=== PATIENT | male | born 1960 | race Caucasian/White ===

== ENCOUNTER 2018-02-28 18:26 | Emergency (ER) | payer OTHER ==
[~2018-02-28] VITALS: Ht 167.6 cm; Wt 77.3 kg
[2018-02-28 19:02] LABS: BASOPHILS % (AUTO) 0.4 % (0.0-2.0); EOSINOPHILS % (AUTO) 1.6 % (1.0-6.0); HEMATOCRIT 43.8 % (41-53); HEMOGLOBIN 14.9 g/dL (13.5-17.5); LYMPHOCYTES # (AUTO) 1.5 K/uL (1.0-4.8); MEAN CORPUSCULAR HEMOGLOBIN 30.9 pg (26.0-34.0); MEAN CORPUSCULAR HGB CONC 33.9 G/dL (31.0-37.0); MEAN CORPUSCULAR VOLUME 91 fL (80-100); MONOCYTES # (AUTO) 0.3 K/uL (0.1-1.0); MONOCYTES % (AUTO) 7.9 % (2.0-9.0); NEUTROPHILS # (AUTO) 2.4 K/uL (1.8-7.7); NEUTROPHILS % (AUTO) 56.1 % (40.0-70.0); PLATELET COUNT (AUTO) 264 K/uL (150-450); RED CELL DISTRIBUTION WIDTH 13.6 % (11.5-14.5)
[2018-02-28 19:18] LABS: CALCIUM, TOTAL 9.5 mg/dL (8.8-10.5); CREATININE 1.42 mg/dL (0.60-1.30); POTASSIUM 4.1 mmol/L (3.5-5.1)
[2018-02-28 19:24] LABS: ALBUMIN 3.8 g/dL (3.4-5.0); BILIRUBIN,TOTAL 0.4 mg/dL (0.1-1.0); TOTAL PROTEIN, SERUM 7.7 g/dL (6.4-8.2)
[2018-02-28] MEDS ORDERED: IOVERSOL 320 MG/ML 100 ML VIAL ONE (20:30)
[2018-02-28] MEDS ORDERED: SODIUM CHLORIDE 0.9% 100 ML ONE (20:31)
[2018-02-28 22:54] VITALS: BP 134/69
== END 2018-02-28 23:22 | disposition home or self-care (01) ==
LOC: EMS 18:27
DX: R07.89 Other chest pain (principal); I25.2 Old myocardial infarction; Z88.6 Allergy status to analgesic agent; Z88.5 Allergy status to narcotic agent; Z88.8 Allergy status to other drugs, medicaments and biological substances
CPT/HCPCS: 36415; 71045; 71260; 80053; 84484; 85025; 93005; 99285; J7050; Q9967

== ENCOUNTER 2022-12-02 20:38 | Emergency (ER) | payer MEDICAID, OTHER ==
[~2022-12-02] VITALS: Ht 170.2 cm; Wt 84.1 kg
[~2022-12-02 20:38] MED LIST: ASPI-1450 PO; ATOR20TA PO; BUPR-50 PO; HYDR50TA46 PO; LOSA-382 PO; MORP-130 PO; OXYC-43 PO
[2022-12-02 20:56] VITALS: BP 144/98; PULSE 90; RESP 14; TEMP 98.6
[2022-12-02] MEDS ORDERED: LIDOCAINE 1% 10 ML VIAL SQ ONE (22:30)
[2022-12-02] MEDS ORDERED: PERTUSS(ACELL),DIPH,TET VAC/PF 0.5 ML SYRINGE IM. ONE (22:30)
[2022-12-02] MEDS ORDERED: BACITRACIN 0.9 GM PACKET OINTMENT TP ONE (22:30)
== END 2022-12-02 23:36 | disposition left against medical advice (07) ==
LOC: EMS 20:41
DX: S61.210A Laceration without foreign body of right index finger without damage to nail, initial encounter (principal); F41.9 Anxiety disorder, unspecified; M19.90 Unspecified osteoarthritis, unspecified site; F32.A Depression, unspecified; E78.00 Pure hypercholesterolemia, unspecified; I10 Essential (primary) hypertension; Z98.890 Other specified postprocedural states; Z88.5 Allergy status to narcotic agent; Z88.8 Allergy status to other drugs, medicaments and biological substances; W26.8XXA Contact with other sharp object(s), not elsewhere classified, initial encounter; Y93.89 Activity, other specified; Y92.89 Other specified places as the place of occurrence of the external cause; Y99.8 Other external cause status
CPT/HCPCS: 99281; Z7502

== ENCOUNTER 2023-08-27 13:32 | Emergency (ER) | payer MEDICARE, OTHER ==
[~2023-08-27] VITALS: Ht 167.6 cm; Wt 63.6 kg
[~2023-08-27 13:32] MED LIST changes: -MORP-130 PO; -OXYC-43 PO
[2023-08-27 13:36] VITALS: TEMP 98
[2023-08-27 14:45] VITALS: BP 156/95; PULSE 87; RESP 16
== END 2023-08-27 16:02 | disposition home or self-care (01) ==
LOC: EMS 13:54
DX: S51.002A Unspecified open wound of left elbow, initial encounter (principal); I10 Essential (primary) hypertension; F41.9 Anxiety disorder, unspecified; M19.90 Unspecified osteoarthritis, unspecified site; F32.A Depression, unspecified; E78.00 Pure hypercholesterolemia, unspecified; Z98.890 Other specified postprocedural states; Z88.5 Allergy status to narcotic agent; Z88.8 Allergy status to other drugs, medicaments and biological substances; X58.XXXA Exposure to other specified factors, initial encounter; Y93.89 Activity, other specified; Y92.89 Other specified places as the place of occurrence of the external cause; Y99.8 Other external cause status
CPT/HCPCS: 99281; Z7502

== ENCOUNTER 2023-09-23 11:50 | Emergency (ER) | payer MEDICARE, OTHER ==
[~2023-09-23] VITALS: Ht 170.2 cm; Wt 75.0 kg
[2023-09-23 11:52] VITALS: BP 157/114; PULSE 102; RESP 16; TEMP 98
[2023-09-23] MEDS ORDERED: abx PO (11:56)
[2023-09-23] MEDS ORDERED: SULF-301 PO (11:56)
[2023-09-23 12:15] LABS: GLUCOMETER DEV NAME(LOC) ERT.5; GLUCOSE,POINT OF CARE 185 MG/DL (70-110)
== END 2023-09-23 13:38 | disposition left against medical advice (07) ==
LOC: EMS 11:51
DX: M79.675 Pain in left toe(s) (principal); Z53.21 Procedure and treatment not carried out due to patient leaving prior to being seen by health care provider
CPT/HCPCS: 82962

== ENCOUNTER → 2023-12-06 | Emergency (ER) | payer MEDICARE, OTHER ==
[~2023-12-06] VITALS: Ht 170.2 cm; Wt 68.2 kg
[~2023-12-06] MED LIST changes: -ASPI-1450 PO; -ATOR20TA PO; -BUPR-50 PO; -HYDR50TA46 PO; -LOSA-382 PO; +SULF-301 PO; +abx PO
[2023-12-06 10:27] VITALS: TEMP 97.4
[2023-12-06 10:35] LABS: COVID AG,FIA SOURCE NASAL SWAB
[2023-12-06 10:41] LABS: GLUCOMETER DEV NAME(LOC) ER.7; GLUCOSE,POINT OF CARE 251 MG/DL (70-110)
[2023-12-06 10:47] LABS: BASOPHILS % (AUTO) 0.1 % (0.0-2.0); EOSINOPHILS % (AUTO) 0.1 % (1.0-6.0); HEMATOCRIT 43.8 % (41-53); HEMOGLOBIN 14.3 g/dL (13.5-17.5); LYMPHOCYTES # (AUTO) 0.5 K/uL (1.0-4.8); LYMPHOCYTES % (AUTO) 3.5 % (22.0-44.0); MEAN CORPUSCULAR HEMOGLOBIN 30.4 pg (26.0-34.0); MEAN CORPUSCULAR HGB CONC 32.7 G/dL (31.0-37.0); MEAN CORPUSCULAR VOLUME 93 fL (80-100); MONOCYTES # (AUTO) 0.5 K/uL (0.1-1.0); MONOCYTES % (AUTO) 3.3 % (2.0-9.0); PLATELET COUNT (AUTO) 356 K/uL (150-450); RED CELL DISTRIBUTION WIDTH 13.6 % (11.5-14.5)
[2023-12-06 10:48] LABS: RBC MORPHOLOGY COMMENT NORMAL RBC MORPH
[2023-12-06 10:58] LABS: CALCIUM, TOTAL 9.5 mg/dL (8.8-10.5); CREATININE 1.23 mg/dL (0.60-1.30); POTASSIUM 5.7 mmol/L (3.5-5.1)
[2023-12-06 10:58] LABS: SARS-COV2 (COVID) ANTIGEN,FIA Negative (Negative)
[2023-12-06 11:00] LABS: INFLUENZA TYPE A NEGATIVE FOR TYPE A (NEGATIVE); INFLUENZA TYPE B NEGATIVE FOR TYPE B (NEGATIVE)
[2023-12-06 11:17] LABS: TROPONIN I-HIGH SENSITIVITY 13 ng/L (<76)
[2023-12-06 13:45] LABS: APPEARANCE,URINE CLEAR (CLEAR); BILIRUBIN,URINE NEGATIVE (NEGATIVE); COLOR,URINE LIGHT YELLOW (YELLOW); GLUCOSE, URINE (UA) >=1000 mg/dL (NEGATIVE); LEUKOCYTE ESTERASE ,URINE NEGATIVE (NEGATIVE); NITRATE,URINE NEGATIVE (NEGATIVE); OCCULT BLOOD,URINE NEGATIVE (NEGATIVE); PROTEIN,URINE NEGATIVE (NEGATIVE); UROBILINOGEN,URINE <=1.0 mg/dL (<=1.0)
[2023-12-06 14:06] LABS: BACTERIA,URINE None Seen /HPF (None Seen); RBC,URINE 0-2 /HPF (0-2); WBC,URINE None Seen /HPF (0-5)
[2023-12-06 14:07] LABS: CALCIUM OXALATE CRYSTALS,UR Moderate /LPF (None Seen)
[2023-12-06 14:31] VITALS: BP 180/77; PULSE 76; RESP 18
== END | disposition still patient (30) ==
LOC: EMS 10:10
DX: B34.9 Viral infection, unspecified (principal); M79.10 Myalgia, unspecified site; R09.89 Other specified symptoms and signs involving the circulatory and respiratory systems; E11.9 Type 2 diabetes mellitus without complications; I10 Essential (primary) hypertension; Z88.5 Allergy status to narcotic agent; Z88.8 Allergy status to other drugs, medicaments and biological substances; Z20.822 Contact with and (suspected) exposure to COVID-19
CPT/HCPCS: 71045; 80048; 81001; 82962; 83880; 84484; 85025; 87804; 93005; 99285; 36415-L1; 36415-TC

== ENCOUNTER 2023-12-25 20:43 | Emergency (ER) | payer OTHER ==
[~2023-12-25] VITALS: Ht 170.2 cm; Wt 67.6 kg
[2023-12-25 20:55] VITALS: BP 182/90; PULSE 86; RESP 18; TEMP 98
[2023-12-25] MEDS ORDERED: METH-661 PO (22:42)
[2023-12-25] MEDS ORDERED: METH4TAB3 PO (22:42)
[2023-12-25] MEDS: DEXAMETHASONE SOD PHOS 4 MG/ML 5 ML VIAL IM ONE (22:49)
[2023-12-25] MEDS: METHOCARBAMOL 500 MG TABLET PO ONE (22:49)
== END 2023-12-25 23:25 | disposition home or self-care (01) ==
LOC: EMS 20:43
DX: M51.16 Intervertebral disc disorders with radiculopathy, lumbar region (principal); G89.29 Other chronic pain; F41.9 Anxiety disorder, unspecified; M19.90 Unspecified osteoarthritis, unspecified site; F32.A Depression, unspecified; E11.9 Type 2 diabetes mellitus without complications; E78.00 Pure hypercholesterolemia, unspecified; I10 Essential (primary) hypertension; Z98.890 Other specified postprocedural states; Z88.5 Allergy status to narcotic agent; Z88.8 Allergy status to other drugs, medicaments and biological substances
CPT/HCPCS: 99283; 96372; J1100

== ENCOUNTER 2024-03-06 16:39 | Emergency (ER) | payer MEDICARE, OTHER ==
[~2024-03-06] VITALS: Ht 170.2 cm; Wt 67.1 kg
[~2024-03-06 16:39] MED LIST changes: +METH-661 PO; +METH4TAB3 PO; -SULF-301 PO; -abx PO
[2024-03-06 21:26] VITALS: BP 129/81; PULSE 90; RESP 16; TEMP 98.7; O2SAT 94
== END 2024-03-06 22:01 | disposition home or self-care (01) ==
LOC: EMS 16:39
DX: E11.9 Type 2 diabetes mellitus without complications (principal); I10 Essential (primary) hypertension; E78.00 Pure hypercholesterolemia, unspecified; I25.2 Old myocardial infarction; Z88.5 Allergy status to narcotic agent
CPT/HCPCS: 82962; 99282; Z7502

== ENCOUNTER 2024-03-16 11:16 | Emergency (ER) | payer MEDICARE, OTHER ==
[~2024-03-16] VITALS: Ht 170.2 cm; Wt 66.8 kg
[2024-03-16 11:28] VITALS: TEMP 97.9
[2024-03-16] MEDS ORDERED: OXYC1TAB6 PO ×3 (11:28→18:10)
[2024-03-16] MEDS ORDERED: OXYC10TA59 PO (11:28)
[2024-03-16] MEDS ORDERED: LOSA-382 PO ×2 (11:28→12:21)
[2024-03-16] MEDS ORDERED: ATOR40TA28 PO ×2 (11:28→12:21)
[2024-03-16] MEDS ORDERED: HYDR25TA84 PO ×2 (11:28→12:21)
[2024-03-16] MEDS ORDERED: BUPR-345 PO (11:28)
[2024-03-16] MEDS ORDERED: SITA100 PO ×2 (11:28→12:21)
[2024-03-16] MEDS ORDERED: ALPR-705 PO ×3 (11:28→18:32)
[2024-03-16] MEDS ORDERED: BUPR-514 PO (12:21)
[2024-03-16 12:34] VITALS: BP 139/88; PULSE 79; RESP 14; O2SAT 98
== END 2024-03-16 12:45 | disposition home or self-care (01) ==
LOC: EMS 11:16
DX: M79.10 Myalgia, unspecified site (principal); Z76.0 Encounter for issue of repeat prescription; E11.9 Type 2 diabetes mellitus without complications; I10 Essential (primary) hypertension; E78.00 Pure hypercholesterolemia, unspecified; F32.A Depression, unspecified; F41.9 Anxiety disorder, unspecified; Z88.5 Allergy status to narcotic agent; Z79.84 Long term (current) use of oral hypoglycemic drugs; Z79.899 Other long term (current) drug therapy
CPT/HCPCS: 99281; Z7502

== ENCOUNTER 2024-04-19 01:56 | Emergency (ER) | payer OTHER ==
[~2024-04-19] VITALS: Ht 170.2 cm; Wt 72.7 kg
[~2024-04-19 01:56] MED LIST changes: +ALPR-705 PO; +ATOR40TA28 PO; +BUPR-345 PO; +BUPR-514 PO; +HYDR25TA84 PO; +LOSA-382 PO; +OXYC10TA59 PO; +OXYC1TAB6 PO; +SITA100 PO
[2024-04-19 02:14] VITALS: BP 179/98; PULSE 104; RESP 20; TEMP 97.8; O2SAT 97
== END 2024-04-19 03:31 | disposition home or self-care (01) ==
LOC: EMS 01:56
DX: H92.01 Otalgia, right ear (principal); F41.9 Anxiety disorder, unspecified; F32.A Depression, unspecified; E11.65 Type 2 diabetes mellitus with hyperglycemia; E78.00 Pure hypercholesterolemia, unspecified; I10 Essential (primary) hypertension; Z79.84 Long term (current) use of oral hypoglycemic drugs; Z85.828 Personal history of other malignant neoplasm of skin; Z88.5 Allergy status to narcotic agent
CPT/HCPCS: 82962; 99282

== ENCOUNTER 2024-06-13 15:01 | Emergency (ER) | payer OTHER ==
[~2024-06-13] VITALS: Ht 165.1 cm; Wt 77.3 kg
[2024-06-13 15:11] VITALS: TEMP 98.2
[2024-06-13] MEDS: LIDOCAINE 5% TRANSDERMAL PATCH TD ONE (18:00)
[2024-06-13] MEDS: HYDROCORTISONE 0.5% 30 GM CREAM TP ONE (18:10)
[2024-06-13] MEDS ORDERED: OXYC5 PO (21:21)
[2024-06-13] MEDS: HYDROmorphone HCL 2 MG/ML SYRINGE IM ONE (21:23)
[2024-06-13 21:37] VITALS: BP 156/90; PULSE 90; RESP 18; O2SAT 97
== END 2024-06-13 21:38 | disposition home or self-care (01) ==
LOC: EMS 15:01
DX: S32.018A Other fracture of first lumbar vertebra, initial encounter for closed fracture (principal); E11.9 Type 2 diabetes mellitus without complications; I10 Essential (primary) hypertension; E78.00 Pure hypercholesterolemia, unspecified; Z88.5 Allergy status to narcotic agent; Z88.6 Allergy status to analgesic agent; V09.9XXA Pedestrian injured in unspecified transport accident, initial encounter; Y93.01 Activity, walking, marching and hiking; Y92.89 Other specified places as the place of occurrence of the external cause; Y99.8 Other external cause status
CPT/HCPCS: 99285; 72131; 82962; 96372; J1171

== ENCOUNTER 2024-06-21 01:21 | Emergency (ER) | payer OTHER ==
[~2024-06-21] VITALS: Ht 170.2 cm; Wt 75.5 kg
[~2024-06-21 01:21] MED LIST changes: -ALPR-705 PO; -ATOR40TA28 PO; -BUPR-345 PO; -BUPR-514 PO; -HYDR25TA84 PO; -LOSA-382 PO; -METH-661 PO; -METH4TAB3 PO; -OXYC10TA59 PO; -OXYC1TAB6 PO; +OXYC5 PO; -SITA100 PO
[2024-06-21 01:36] VITALS: BP 198/107; PULSE 93; RESP 16; TEMP 97.6; O2SAT 97
[2024-06-21] MEDS ORDERED: OxyCODONE HCL/ACETAMINOPHEN 5-325 MG TABLET PO ONE (04:00)
[2024-06-21] MEDS ORDERED: METHOCARBAMOL 500 MG TABLET PO ONE (04:00)
[2024-06-21] MEDS ORDERED: METH-659 PO (04:42)
[2024-06-21] MEDS ORDERED: DIPH50CA37 PO (04:42)
== END 2024-06-21 05:37 | disposition home or self-care (01) ==
LOC: EMS 01:23
DX: G89.29 Other chronic pain (principal); M54.50 Low back pain, unspecified; E11.9 Type 2 diabetes mellitus without complications; I10 Essential (primary) hypertension; E78.00 Pure hypercholesterolemia, unspecified; Z88.5 Allergy status to narcotic agent; Z88.6 Allergy status to analgesic agent
CPT/HCPCS: 99283

== ENCOUNTER 2024-06-27 22:35 | Emergency (ER) | payer OTHER ==
[~2024-06-27] VITALS: Ht 170.2 cm; Wt 75.0 kg
[~2024-06-27 22:35] MED LIST changes: +DIPH50CA37 PO; +METH-659 PO
[2024-06-27] MEDS ORDERED: INSU3INS3 SQ (23:00)
[2024-06-27 23:02] VITALS: TEMP 98.3
[2024-06-27 23:06] LABS: GLUCOMETER DEV NAME(LOC) ERT.6; GLUCOSE,POINT OF CARE 260 MG/DL (70-110)
[2024-06-27] MEDS ORDERED: SITA100 PO (23:06)
[2024-06-27] MEDS ORDERED: ATOR40TA71 PO (23:06)
[2024-06-27] MEDS ORDERED: LOSA100T59 PO (23:06)
[2024-06-28 00:57] VITALS: BP 175/90; PULSE 99; RESP 18; O2SAT 96
== END 2024-06-28 00:59 | disposition home or self-care (01) ==
LOC: EMS 22:36
DX: E11.9 Type 2 diabetes mellitus without complications (principal); M54.9 Dorsalgia, unspecified; I10 Essential (primary) hypertension; E78.00 Pure hypercholesterolemia, unspecified; Z79.4 Long term (current) use of insulin; Z88.5 Allergy status to narcotic agent; Z88.6 Allergy status to analgesic agent; Z79.84 Long term (current) use of oral hypoglycemic drugs; Z79.899 Other long term (current) drug therapy
CPT/HCPCS: 82962; 99282

== ENCOUNTER 2024-08-29 20:53 | Emergency (ER) | payer OTHER ==
[~2024-08-29] VITALS: Ht 167.6 cm; Wt 77.3 kg
[~2024-08-29 20:53] MED LIST changes: +ATOR40TA71 PO; +INSU3INS3 SQ; +LOSA100T59 PO; +SITA100 PO
[2024-08-29 21:13] VITALS: BP 172/104; PULSE 80; RESP 16; TEMP 97.9; O2SAT 97
[2024-08-29 21:36] LABS: GLUCOMETER DEV NAME(LOC) ER.7; GLUCOSE,POINT OF CARE 273 MG/DL (70-110)
[2024-08-30] MEDS: TraMADol HCL 50 MG TABLET PO ONE (01:13)
[2024-08-30] MEDS ORDERED: LIDO700A15 TP (03:05)
[2024-08-30] MEDS ORDERED: TRAM50TA5 PO (03:05)
[2024-08-30] MEDS: LIDOCAINE 5% TRANSDERMAL PATCH TD ONE (03:09)
== END 2024-08-30 03:16 | disposition home or self-care (01) ==
LOC: EMS 20:53
DX: M54.50 Low back pain, unspecified (principal); E11.9 Type 2 diabetes mellitus without complications; I10 Essential (primary) hypertension; E78.00 Pure hypercholesterolemia, unspecified; Z88.5 Allergy status to narcotic agent; Z88.6 Allergy status to analgesic agent; Z79.4 Long term (current) use of insulin; Z79.899 Other long term (current) drug therapy
CPT/HCPCS: 82962; 99283

== ENCOUNTER 2025-02-19 00:38 | Emergency (ER) | payer OTHER ==
[~2025-02-19] VITALS: Ht 167.6 cm; Wt 75.0 kg
[~2025-02-19 00:38] MED LIST changes: +LIDO-57 TP; +TRAM50TA5 PO
[2025-02-19 01:10] VITALS: TEMP 97.9
[2025-02-19 01:20] LABS: GLUCOMETER DEV NAME(LOC) ERT.7; GLUCOSE,POINT OF CARE 323 MG/DL (70-110)
[2025-02-19 02:11] LABS: PLATELET COUNT (AUTO) 283 K/uL (150-450); RED BLOOD CELL COUNT(AUTO) 4.33 MIL/uL (4.50-5.90); RED CELL DISTRIBUTION WIDTH 14.0 % (11.5-14.5); WHITE BLOOD COUNT (AUTO) 5.0 K/uL (4.5-11.0)
[2025-02-19 02:16] LABS: COVID AG,FIA SOURCE NASAL SWAB
[2025-02-19 02:20] LABS: CALCIUM, TOTAL 8.9 mg/dL (8.8-10.5); CREATININE 1.10 mg/dL (0.60-1.30); GLOMERULAR FILTR. RATE CALC > 60 mL/min (>60); GLUCOSE,RANDOM 286 mg/dL (70-110); SODIUM SERUM 141 mmol/L (136-145); UREA NITROGEN, BLOOD 17 mg/dL (7-18)
[2025-02-19 02:41] LABS: INFLUENZA TYPE A NEGATIVE FOR TYPE A (NEGATIVE); INFLUENZA TYPE B NEGATIVE FOR TYPE B (NEGATIVE)
[2025-02-19 02:44] LABS: SARS-COV2 (COVID) ANTIGEN,FIA Negative (Negative)
[2025-02-19 04:00] VITALS: BP 148/82; PULSE 88; RESP 16; O2SAT 96
== END 2025-02-19 04:39 | disposition home or self-care (01) ==
LOC: EMS 00:54
DX: J06.9 Acute upper respiratory infection, unspecified (principal); B97.89 Other viral agents as the cause of diseases classified elsewhere; E11.65 Type 2 diabetes mellitus with hyperglycemia; E78.00 Pure hypercholesterolemia, unspecified; I10 Essential (primary) hypertension; I25.2 Old myocardial infarction; M19.90 Unspecified osteoarthritis, unspecified site; R50.9 Fever, unspecified; R05.9 Cough, unspecified; R53.83 Other fatigue; F10.90 Alcohol use, unspecified, uncomplicated; Z98.890 Other specified postprocedural states; Z79.4 Long term (current) use of insulin; Z79.899 Other long term (current) drug therapy; Z88.5 Allergy status to narcotic agent; Z88.6 Allergy status to analgesic agent; Z91.010 Allergy to peanuts; Z20.822 Contact with and (suspected) exposure to COVID-19
CPT/HCPCS: 71045; 80048; 82962; 85025; 87804; 99284; 36415-L1; 36415-TC

== ENCOUNTER 2025-04-04 14:09 | Emergency (ER) | payer OTHER ==
[~2025-04-04] VITALS: Ht 168.9 cm; Wt 75.0 kg
[2025-04-04 14:23] VITALS: TEMP 97.9
[2025-04-04 14:46] LABS: GLUCOMETER DEV NAME(LOC) ERT.7; GLUCOSE,POINT OF CARE 125 MG/DL (70-110)
[2025-04-04 14:56] LABS: PLATELET COUNT (AUTO) 308 K/uL (150-450); RED BLOOD CELL COUNT(AUTO) 4.67 MIL/uL (4.50-5.90); RED CELL DISTRIBUTION WIDTH 12.9 % (11.5-14.5); WHITE BLOOD COUNT (AUTO) 8.1 K/uL (4.5-11.0)
[2025-04-04 15:08] LABS: CALCIUM, TOTAL 9.3 mg/dL (8.8-10.5); CREATININE 1.00 mg/dL (0.60-1.30); GLOMERULAR FILTR. RATE CALC > 60 mL/min (>60); GLUCOSE,RANDOM 121 mg/dL (70-110); SODIUM SERUM 140 mmol/L (136-145); UREA NITROGEN, BLOOD 19 mg/dL (7-18)
[2025-04-04 15:14] LABS: TROPONIN I-HIGH SENSITIVITY 16 ng/L (<76)
[2025-04-04 18:45] VITALS: BP 160/71; PULSE 65; RESP 12; O2SAT 98
== END 2025-04-04 18:47 | disposition home or self-care (01) ==
LOC: EMS 14:09
DX: R06.02 Shortness of breath (principal); M54.50 Low back pain, unspecified; G89.29 Other chronic pain; R53.1 Weakness; E11.9 Type 2 diabetes mellitus without complications; E78.00 Pure hypercholesterolemia, unspecified; I10 Essential (primary) hypertension; I25.10 Atherosclerotic heart disease of native coronary artery without angina pectoris; M19.90 Unspecified osteoarthritis, unspecified site; F10.90 Alcohol use, unspecified, uncomplicated; F41.9 Anxiety disorder, unspecified; F32.A Depression, unspecified; Z79.4 Long term (current) use of insulin; Z88.6 Allergy status to analgesic agent; Z91.010 Allergy to peanuts; Z95.5 Presence of coronary angioplasty implant and graft; Z88.5 Allergy status to narcotic agent; Z79.899 Other long term (current) drug therapy; Z98.890 Other specified postprocedural states; Y90.9 Presence of alcohol in blood, level not specified
CPT/HCPCS: 71045; 80048; 82962; 83880; 84484; 85025; 93005; 99285; 36415-L1; 36415-TC